=== PATIENT | male | born 1975 | race Two or more races ===

== ENCOUNTER 2019-12-12 20:28 | Emergency (ER) | payer BC ==
[~2019-12-12] VITALS: Ht 172.7 cm; Wt 76.3 kg
[2019-12-12 20:35] VITALS: Ht 172.7 cm; Wt 76.3 kg
[2019-12-12 21:08] LABS: PLATELET COUNT 194 x10^3mcL (130-400); RED CELL DISTRIBUTION WIDTH 12.9 % (11.5-14.5)
[2019-12-12 21:14] LABS: CALCIUM 8.6 mg/dL (8.5-10.1); CARBON DIOXIDE 27.6 mmol/L (21-32); CHLORIDE SERUM 106 mmol/L (98-107); CREATININE SERUM 1.3 mg/dL (0.7-1.3); GFR1 > 60 mL/min; GLUCOSE SERUM 97 mg/dL (74-106); POTASSIUM SERUM 3.9 mmol/L (3.5-5.1); SODIUM SERUM 143 mmol/L (136-145)
[2019-12-12 21:18] LABS: ALKALINE PHOSPHATASE 101 U/L (46-116); ALT/SGPT 33 U/L (16-63); AST/SGOT 22 U/L (15-37); BILIRUBIN TOTAL 0.3 mg/dL (0.20-1.00); TOTAL PROTEIN, SERUM 7.3 g/dL (6.4-8.2)
[2019-12-12 22:26] LABS: CHOLESTEROL/HDL RATIO 4.4
[2019-12-12 22:32] LABS: FREE T4 1.27 ng/dL (0.76-1.46); FREE THYROXINE INDEX 2.8 ug/dL (1.4-4.5); T4(THYROXINE) 8.1 ug/dL (4.7-13.3)
[2019-12-12 22:42] LABS: T3 TOTAL 1.39 ng/mL
[2019-12-13 01:13] VITALS: BP 128/95
== END 2019-12-13 01:13 | disposition home or self-care (01) ==
LOC: ED 20:28
PROVIDERS: Emergency Medicine
DX: R07.89 Other chest pain (principal); E78.1 Pure hyperglyceridemia
CPT/HCPCS: 36415; 84439